=== PATIENT | female | born 1940 | race African-American/Black ===

== ENCOUNTER → 2018-05-25 | Outpatient (CLI) | payer MEDICARE, OTHER ==
--- NOTE | 2018-05-26 09:48 | RAD ---
CT of the chest without contrast, 05/25/2018: HISTORY: Chronic cough Comparison is made to a study from 06/01/2005. There are scattered calcified granulomata in the lungs. There are mild peripheral reticular opacities in the lower chest, greatest in the right middle and lower lobes. The appearance suggests scarring with minimal traction bronchiectasis medially in the right lung base. No pulmonary mass is seen. There is no evidence of pleural fluid. There is moderate calcific plaquing of the thoracic aorta without evidence of aneurysm. Moderate coronary artery calcifications are present. Calcified mediastinal and hilar lymph nodes are present due to old granulomatous disease. No mediastinal adenopathy is seen. Mild bilateral renal cortical scarring is noted. Moderate multilevel degenerative change is present in the spine. There are striated trabeculae within the T11 vertebral body compatible with a vertebral hemangioma. This process extends into the right pedicle. IMPRESSION: 1. Worsening mild peripheral basilar opacities, more so on the right, compatible with mild fibrosis. 2. 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 3. Moderate calcific plaquing of the aorta and coronary arteries. PQRS Compliance Statement: One or more of the following individualized dose reduction techniques were utilized for this examination: 1. Automated exposure control 2. Adjustment of the mA and/or kV according to patient size 3. Use of iterative reconstruction technique Electronically signed by: Reed Tinsley MD (05/26/2018 9:43 AM) [facility]
== END | disposition home or self-care (01) ==
LOC: CT 12:15
PROVIDERS: ATTEND Internal Medicine Pulmonary Disease
DX: R05 Cough (principal); I25.10 Atherosclerotic heart disease of native coronary artery without angina pectoris; I70.0 Atherosclerosis of aorta; M47.814 Spondylosis without myelopathy or radiculopathy, thoracic region
CPT/HCPCS: 71250

== ENCOUNTER → 2019-11-25 | Outpatient (CLI) | payer MEDICARE, OTHER ==
[~2019-11-25] MED LIST: ATOR40TA59 PO; INSU100I13 SQ; SITA50TA PO; TRAN2TAB16 PO
== END | disposition home or self-care (01) ==
LOC: LAB 13:53
PROVIDERS: ATTEND Internal Medicine Gastroenterology
DX: Z11.59 Encounter for screening for other viral diseases (principal)
CPT/HCPCS: U0003-CS

== ENCOUNTER → 2019-11-28 | Day surgery (SDC) | payer MEDICARE, OTHER ==
[~2019-11-28] MED LIST changes: +IV RINGERS,LACTATED 1000ML 1,000 ML IV ONE; +PROPOFOL 10 MG/ML (20ML) VIAL. IV ONE
[2019-11-28 13:45] VITALS: BP 145/67
== END ==
LOC: ENDOS 12:36
PROVIDERS: ATTEND Internal Medicine Gastroenterology
DX: D50.9 Iron deficiency anemia, unspecified (principal); K57.30 Diverticulosis of large intestine without perforation or abscess without bleeding; K64.0 First degree hemorrhoids; I10 Essential (primary) hypertension; E78.00 Pure hypercholesterolemia, unspecified; E11.9 Type 2 diabetes mellitus without complications; Z86.010 Personal history of colon polyps; Z79.84 Long term (current) use of oral hypoglycemic drugs
CPT/HCPCS: 45378; J2704

== ENCOUNTER → 2020-08-21 | Outpatient (CLI) | payer MEDICARE, OTHER ==
[2019-11-28 13:45] VITALS: BP 145/67
[~2020-08-21] MED LIST changes: -IV RINGERS,LACTATED 1000ML 1,000 ML IV ONE; -PROPOFOL 10 MG/ML (20ML) VIAL. IV ONE; -TRAN2TAB16 PO; +TRAN2TAB17 PO
--- NOTE | 2020-08-21 16:37 | RAD ---
CT of the chest without contrast 08/21/2020 Indication: [Abnormal prior CT scan.] Comparison study: CT chest May 17, 2019 Technique: Multidetector CT imaging of the chest was performed following the administration of intrav enous contrast. Multiple reconstructions including 3-D maximum intensity projection reconstructions w ere created on an independent workstation and reviewed. Findings: Cardiomegaly is grossly similar. Dense coronary calcification noted. No significant pericardial effus ion is seen. No pathologic mediastinal adenopathy is identified. No focal consolidation or infiltrate is seen. No pneumothorax or pleural effusion is seen. Stable mild, basilar predominant subpleural fi brotic changes noted. No Acute osseous abnormality is identified. Limited visualization of the upper abdomen demonstrates no acute abnormality. Hemangioma in the T11 vertebral body noted. Impression: 1. No evidence of acute cardiopulmonary process 2. Stable basilar predominant mild subpleural fibrotic change. CT DOSING PQRS STATEMENT: One or more of the following individualized dose reduction techniques were utilized for this examinat ion: 1. Automated exposure control 2. Adjustment of the mA and/or kV according to patient size 3. Use of iterative reconstruction technique Electronically signed by: Noe Mg MD (08/21/2020 4:35 PM) [id number]
== END ==
LOC: CT 12:23
PROVIDERS: ATTEND Internal Medicine Pulmonary Disease
DX: R93.89 Abnormal findings on diagnostic imaging of other specified body structures (principal); D18.09 Hemangioma of other sites; I51.7 Cardiomegaly
CPT/HCPCS: 71250